=== PATIENT | female | born 2000 | race Caucasian/White ===

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

== ENCOUNTER 2021-04-19 20:37 | Emergency (ER) | payer MEDICAID, SELFPAY ==
[2021-04-19 20:39] VITALS: BP 124/72; PULSE 96; RESP 15; TEMP 36.1; O2SAT 97; BMI 39.8
== END 2021-04-19 22:02 | disposition left against medical advice (07) ==
LOC: ED 22:02
PROVIDERS: PCP Pediatrics
DX: R69 Illness, unspecified (principal); Z53.21 Procedure and treatment not carried out due to patient leaving prior to being seen by health care provider

== ENCOUNTER 2022-11-06 22:18 | Emergency (ER) | payer MEDICAID, SELFPAY ==
[2022-11-06 22:19] VITALS: BP 119/105; PULSE 104; RESP 18; TEMP 36.1; O2SAT 96; BMI 41.4
[2022-11-07] MEDS: 0.9% Normal Saline 1,000 ML 999 ML IV (00:46)
[2022-11-07] MEDS: DiphenhydrAMINE 50 MG/ML Syringe IV (00:46)
[2022-11-07] MEDS: Ketorolac 30 MG/ML Syringe IV (00:46)
[2022-11-07] MEDS: Metoclopramide 10 MG/2 ML Vial IV (00:46)
--- NOTE | 2022-11-07 02:16 | EX.ED.DYSGE1 ---
HPI History of Present Illness Chief Complaint: Headache Informant: patient and family Narrative Narrative: Patient is a 22-year-old female with past medical history of migraine headaches. Patient and family states that they recently traveled from [place] and after returning to [place] patient began complaining of generalized headache with light sensitivity. They states she developed bouts of nausea and vomiting and then began to slur her speech. Patient and family states that the slurred speech was not normal for her with her previous migraines and this concerned him and therefore she was brought in for evaluation [facility] Home Medications ondansetron 4 mg disintegrating tablet 4 mg PO TID PRN nausea and vomiting #21 tabs 11/07/22 [Rx Last Taken Unknown] Allergy/AdvReac Type Severity Reaction Status Date / Time amoxicillin [Amoxicillin] Allergy Rash Verified 11/06/22 22:19 cefdinir [From Omnicef] Allergy Rash Verified 11/06/22 22:19 Penicillins Allergy Hives Verified 11/06/22 22:19 Social History Smoking Status: Never smoker ROS ROS ED Constitutional Constitutional ED: Denies chills or fever(s) Eyes Eyes: Reports other Details: Positive photophobia ENT ENT ED: Denies sore throat Cardiovascular Cardiovascular: Denies chest pain Respiratory/Chest Respiratory/Chest: Denies cough or dyspnea Gastrointestinal Gastrointestinal: Reports nausea and vomiting; Denies abdominal pain or diarrhea Genitourinary Genitourinary ED: Denies dysuria Musculoskeletal Musculoskeletal: Denies myalgias or neck pain Integumentary Denies rash Neurologic Neurologic: Reports headache(s) Hematologic/Lymphatic Hematologic/Lymphatic: Denies easy bleeding or easy bruising EXAM Physical Exam Const Vital Signs: 11/06/22 22:19 11/07/22 02:35 Temperature 97 F L Temperature Source Temporal Pulse Rate 104 H 74 Respiratory Rate 18 16 Blood Pressure 119/105 H 167/87 H Blood Pressure Mean 109 Pulse Ox 96 96 Oxygen Delivery Method Room Air Positive well nourished, well developed and obese General Appearance ED: well developed Nutritional Appearance: obese HEENT Reports moist mucous membranes HEENT Narrative: No tongue or cheek biting to suggest seizure activity No signs of infection in the posterior pharynx No airway edema or compromise Eyes PERRL and EOMs intact bilaterally General Eye ED: Negative for scleral icterus Neck supple Neck Narrative: No nuchal rigidity or meningeal signs present Resp normal respiratory effort and clear to auscultation bilaterally Cardio regular rate and regular rhythm GI non-tender and non-distended GI Narrative: No voluntary guarding or rigidity. No pulsatile mass or fluid wave Auscultation: hyperactive bowel sounds Palpation: soft Extremity normal to inspection Extremity Narrative: No asymmetric edema no pitting edema negative Homans' sign bilaterally Neuro oriented x3 and CN's II-XII intact bilaterally Neuro Narrative: Cranial nerves II through XII are grossly intact there are no focal neurologic deficits. No pronator drift no dysmetria no truncal ataxia. NIH stroke scale score of 0 Sensorium / Orientation: alert Psych Psych Narrative: Patient has a flat affect Skin no rashes or lesions noted General Skin Exam: Negative for jaundice MDM MDM MDM Narrative Medical decision making narrative: Patient presented to the ER awake and alert with no focal neurologic deficit. With her past history of migraine headache differential diagnosis is atypical migraine headache versus acute ischemic or hemorrhagic stroke versus TIA versus gastroenteritis. Secondary to this blood work was ordered and a noncontrast head CT obtained in order to rule out bleed or mass as a cause of her nausea vomiting and headache. Unfortunately labs were not able to be obtained but head CT revealed no acute findings. Patient was treated with IV fluids Toradol Benadryl and Reglan and on reevaluation had improvement of headache and her neuro exam remained normal. She was able to walk to and from the bathroom with a steady gait and did not have any further slurred speech. Therefore this time with resolution of of her neurologic symptoms as well as improvement of headache and head CT showing no acute bleed or mass as a cause of her symptoms I do feel that this was atypical migraine especially as she is low risk for any type of neurologic event and would be extremely rare for a TIA or stroke to cause pain with symptoms. Therefore patient will be given continue antiemetic medications but is otherwise safe for discharge History & Record Review Discussion w/independent historian: Patient and Family Radiography Diagnostic Testing: Clinical Impression(s) from Imaging Studies Brain CT 11/07/22 23:47 IMPRESSION: Normal unenhanced CT scan of the brain. Electronically Signed: Franko Nance MD at 1:42 EDT , Discharge Plan Triage Chief Complaint: Headache Other Complaint: Confusion Nausea/Vomiting ED Provider: Parshant Ndiaye Dx/Rx/DC Orders Clinical Impression: Atypical migraine, ADD (attention deficit disorder) Instructions: Migraines and Cluster Headaches Prescriptions: New ondansetron 4 mg tablet,disintegrating 4 mg PO TID PRN (Reason: nausea and vomiting) Qty: 21 0RF Primary Care Provider: Keisha Zambrano Referrals: Keisha Zambrano MD [Primary Care Provider] - Disposition Disposition: Home, Self Care Discharge Date/Time: 11/07/22 02:36
[2022-11-07] MEDS: Ondansetron ODT 4 MG Tablet PO (02:32)
[2022-11-07 02:35] VITALS: BP 167/87; PULSE 74; RESP 16; O2SAT 96
--- NOTE | 2022-11-07 23:47 | CT_ITS ---
STUDY: CT BRAIN WITHOUT CONTRAST REASON FOR EXAM: Female, 22 years old. headache RADIATION DOSAGE (If Supplied By Facility): CTDIvol = ( 44.99 ) mGy, DLP = ( 779.24 ) mGycm TECHNIQUE: Transaxial CT imaging of the brain was performed without administration of intravenous contrast material. Individualized dose optimization techniques were used for this CT. COMPARISON: No relevant priors. FINDINGS: Normal soft tissue structures. Normal calvarium. Normal size ventricles and extra-axial spaces for the patient''s age. Normal white matter tracts of the cerebral hemispheres. Normal basal ganglia and thalami. Normal brainstem. Normal cerebellum. There is no intracranial hemorrhage. There are no findings of an acute ischemic infarction. Normal visualized paranasal sinuses. CT/Brain/Head without Contrast IMPRESSION: Normal unenhanced CT scan of the brain. Electronically Signed: Franko Nance MD at 1:42 EDT ,
== END 2022-11-07 02:36 | disposition home or self-care (01) ==
PROVIDERS: Emergency Provider Emergency Medicine; PCP Pediatrics; Visit Provider Emergency Medicine
DX: G43.909 Migraine, unspecified, not intractable, without status migrainosus (principal); F90.0 Attention-deficit hyperactivity disorder, predominantly inattentive type
CPT/HCPCS: 70450; 96374; 96375; 99284; J7030; A4216

== ENCOUNTER 2024-03-06 00:22 | Emergency (ER) | payer SELFPAY ==
[2024-03-06 00:23] VITALS: PULSE 92; RESP 19; TEMP 36.8; O2SAT 97
[2024-03-06 00:28] VITALS: BP 126/79
--- NOTE | 2024-03-06 00:48 | CT_ITS ---
INDICATION: headache EXAMINATION: CT BRAIN - CT Head or Brain W/O Contrast Injection TECHNIQUE: Multiple axial images were obtained of the head with sagittal and coronal reconstructed images. Individualized dose optimization techniques were used for this CT. IV contrast dosage and agent: None. COMPARISON: 11/07/2022 CT. FINDINGS: BRAIN PARENCHYMA: No evidence of an acute infarct or intracranial hemorrhage. No evidence of a mass. CSF SPACES: The ventricles, sulci and subarachnoid cisterns are appropriate for age. CALVARIUM, SKULL BASE, PARANASAL SINUSES AND MASTOID AIR CELLS: No fracture. Mastoid air cells are clear. Visualized paranasal sinuses are unremarkable. ORBITS: The globes, extraocular muscles, optic nerves and retrobulbar fat are unremarkable. CT/Brain/Head without Contrast IMPRESSION: Normal noncontrast CT of the head. Electronically Signed: Finn Shepherd DO at 2:08 EST ,
--- NOTE | 2024-03-06 00:56 | EDS_ITS ---
HPI History of Present Illness Chief Complaint: Numb/Ting Narrative Narrative: Patient is a 23-year-old female past medical history migraine headaches who presents to the emergency department the chief complaint of headache, nausea and tingling in her right arm. States that around 11:00 this evening she developed a headache that is gradually worsened. States that this does feel like a migraine headache however she noted that she had right arm tingling which prompted her to come here for further evaluation management. Patient states that she took ibuprofen for her headache prior to arrival. Patient denies any recent sick contacts. Patient denies any blood thinner medications. Patient denies any head injury. PFSH PFSH Home Medications ?Medication ?Instructions ?Recorded ?Last Taken ?Type ondansetron 4 mg disintegrating 4 mg PO Q6H PRN nausea and 03/06/24 Unknown Rx tablet vomiting #20 tabs Allergy/AdvReac Type Severity Reaction Status Date / Time amoxicillin (Amoxicillin) Allergy Rash Verified 11/06/22 22:19 azithromycin (From Zithromax) Allergy Hives Verified 03/06/24 00:29 cefdinir (From Omnicef) Allergy Rash Verified 11/06/22 22:19 Penicillins Allergy Hives Verified 11/06/22 22:19 Social History Smoking Status: Never smoker ROS ROS ED ROS Narrative Constitutional: Complains of headache as noted above denies any lightheadedness, fevers, chills Eyes: Denies change in vision double vision blurry vision Cardiovascular: Denies chest pain or palpitations Respiratory: Denies coughing wheezing shortness of breath Abdomen: Denies abdominal pain diarrhea, complains of nausea as noted above : Denies any urinary symptoms Neurological: Complains of tingling in her right arm but denies any other associated symptoms anywhere else in her body denies weakness Musculoskeletal: Denies back pain Skin: Denies rashes or lesions EXAM Physical Exam Narrative Exam Narrative: General: Patient lying in bed rest comfortably did not appear to be acute distress Head: Atraumatic, normocephalic Eyes: PERRL bilateral, EOMI bilateral, no conjunctival injection noted Neck: Soft, supple, trachea midline Cardiovascular: Regular rate and rhythm no murmurs gallops rubs noted Respiratory: Clear to auscultation bilaterally no rales rhonchi or wheezes noted Abdomen: Soft, nondistended, nontender to palpation bowel sounds present MS 4 Extremities: +5/5 strength noted in the bilateral upper and lower extremities, radial pulses +2/4 in the bilateral per extremities Neurological: Patient following commands knew that she was at [facility] years 2023. NIH of 0 GCS 15. Patient completed finger-nose test bilaterally without any difficulty Skin: Warm, dry, intact Const Vital Signs: 03/06/24 00:23 03/06/24 00:28 03/06/24 02:22 Temperature 98.2 F Temperature Source Oral Pulse Rate 92 73 Respiratory Rate 19 H 12 Blood Pressure 126/79 H 119/72 Blood Pressure Mean 94 87 Pulse Ox 97 93 Oxygen Delivery Method Room Air Room Air MDM MDM MDM Narrative Medical decision making narrative: Patient is a 23-year-old female who presents to the emergency department chief complaint of headache. Patient will have a workup performed here on the diffe rential diagnose includes Melamin to intracranial hemorrhage, migraine headache, tension headache. Once workup is obtained reviewed she will be reevaluated. Patient's headache once again started at 2300 and gradually worsened prompting her to come here also secondary to her right arm tingling. Patient be given Reglan, Tylenol, and IV fluids. Patient's urinalysis reviewed and showed no evidence of infection she had negative nitrates negative leukocyte esterase no white blood cells seen but 4+ bacteria she does not have any urinary symptoms we will send for culture though she was advised to follow-up on this with her primary care physician. Her glucose was slightly elevated at 126. Patient CT head and brain was reviewed and showed no acute findings. On reevaluation the patient she states that she is feeling better still has slight headache therefore we will add on Toradol and another dose of Reglan. On reevaluation the patient she is feeling much improved would like to go home at this point time. She is advised to follow-up with her primary care physician outpatient setting. She is encouraged to rotate Tylenol and ibuprofen [id number]. She is given a prescription for Zofran. She is advised return with worsening symptoms or concerns she is agreeable this plan all question concerns answered she was discharged home in stable condition. Lab Data Labs: Laboratory Results - last 24 hr 03/06/24 03/06/24 00:51 02:04 Urine Color Yellow Urine Clarity Sl. Cloudy Urine pH 6.0 Ur Specific [place] 1.020 Urine Protein 30 H Urine Glucose (UA) Normal Urine Ketones 5 H Urine Occult Blood Negative Urine Nitrite Negative Urine Bilirubin Negative Urine Urobilinogen 1 H Ur Leukocyte Esterase Negative Urine RBC 0 SEEN Urine WBC 0 SEEN Ur Squamous Epith Cells 5-10 SEEN Urine Bacteria 4+ Urine Mucus 0 SEEN Urine Test Negative POC Glucose 126 H Radiography Diagnostic Testing: Clinical Impression(s) from Imaging Studies Brain CT 03/06/24 00:48 IMPRESSION: Normal noncontrast CT of the head. Electronically Signed: Finn Shepherd DO at 2:08 EST , Discharge Plan Triage Chief Complaint: Numb/Ting ED Provider: Nader Dawson Dx/Rx/DC Orders Clinical Impression: Headache Prescriptions: New ondansetron 4 mg tablet,disintegrating 4 mg PO Q6H PRN (Reason: nausea and vomiting) Qty: 20 0RF Primary Care Provider: Care Physician,No Primary Referrals: Care Physician,No Primary [Primary Care Provider] - Tiny Pat DO Shay [[facility]] - Activity Restrictions/Additional Instructions: Follow-up your primary care physician outpatient setting. Follow-up on urine culture with them. Rotate Tylenol and ibuprofen [id number]. He Zofran for nausea as prescribed. Return with worsening symptoms or other concerns Print Language: Greenlandic Disposition Disposition: Home, Self Care
[2024-03-06] MEDS: Metoclopramide 10 MG/2 ML Vial 5 MG IV ×2 (01:07→02:54)
[2024-03-06] MEDS: 0.9% Normal Saline (500mL Bag) 500 ML 999 ML IV (01:07)
[2024-03-06 01:08] LABS: Bedside Glucose 126 mg/dL (74-106)
[2024-03-06] MEDS: Acetaminophen 500 MG Tablet 1000 MG PO (01:34)
[2024-03-06 02:14] LABS: Mucous, Urine 0 SEEN /hpf (<or=2+); Red Blood Cells-Urine 0 SEEN /hpf (0-5); White Blood Cells 0 SEEN /hpf (0-5)
[2024-03-06 02:22] VITALS: BP 119/72; PULSE 73; RESP 12; O2SAT 93
[2024-03-06 02:39] LABS: Color, Urine Yellow (Yellow); Glucose, Dipstick Normal (Normal); Ketone-Dipstick 5 mg/dl (Negative); Leukocyte Esterase-Dipstick Negative /ul (Negative); Nitrite-Dipstick Negative (Negative); Occult Blood-Urine Negative /ul (Negative); Protein-Dipstick 30 mg/dl (Negative); Urine Bilirubin Dipstick Negative (Negative); Urine Clarity Sl. Cloudy (Clear); Urine Urobilinogen 1 mg/dl (Normal)
[2024-03-06 02:43] LABS: Internal QC Validated? YES +Cl - CLEAR BKGD; Pregnancy, Urine Negative Negative; Record Kit Lot#,Urine Preg 869294
[2024-03-06] MEDS: Ketorolac 15 MG/ML Vial IV (02:53)
[2024-03-06 02:54] LABS: Bacteria 4+ /hpf (None Seen); Squamous Epithelial Cells - UA 5-10 SEEN /hpf (5-10)
[2024-03-06 03:37] VITALS: BP 97/56; PULSE 84; RESP 18; TEMP 36.9; O2SAT 100
== END 2024-03-06 03:38 | disposition home or self-care (01) ==
PROVIDERS: Emergency Provider Emergency Medicine; Visit Provider Emergency Medicine
DX: R51.9 Headache, unspecified (principal)
CPT/HCPCS: 70450; 81001; 81025; 82962; 87086; 87088; 96361; 96374; 96375; 96376; 99282; A4216

== ENCOUNTER 2024-06-14 07:08 | Emergency (ER) | payer SELFPAY ==
[2024-06-14 07:09] VITALS: BP 154/112; PULSE 129; RESP 22; TEMP 36.9; O2SAT 97; BMI 41.2
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
[2024-06-14] MEDS: Diphth,Pertuss(Acell),Tet Vac 0.5 ML Vial IM (07:26)
[2024-06-14] MEDS: Ondansetron 4 MG/2 ML Vial IV (07:26)
[2024-06-14] MEDS: Morphine 4 MG/ML Syringe IV (07:26)
[2024-06-14] MEDS: 0.9% Normal Saline (1000mL) 1,000 ML 999 ML IV (07:29)
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
[2024-06-14 08:21] LABS: Absolute Neutrophil Count 10.7 X10^3/uL (2.0-7.7); Basophil# 0.04 X10^3/uL; Basophil% 0.3 % (0-1); Eosinophil# 0.15 X10^3/uL; Hematocrit 39.6 % (37-47); Hemoglobin 12.9 g/dL (12.0-15.0); Lymphocyte % 20.4 % (19-41); Mean Corp Hgb Conc 32.6 g/dL (32-36); Mean Corpuscular Hgb 29.1 pg (27.0-32.0); Mean Corpuscular Volume 89.4 fL (81-99); Mean Platelet Vol. 9.9 fl (6.2-12.0); Monocyte# 1.04 X10^3/uL; Monocyte% 6.9 % (0-10); NRBC Flagged by Analyzer 0 % (0-5); Neutrophil # 10.69 X10^3/uL (2.7-7.7); Neutrophil % 70.4 % (47-70); Platelet Count 248 K/mm3 (150-450); RBC Distribution Width CV 13.2 % (11.6-14.6); RBC Distribution Width SD 43.3 fl (35.1-43.9); Red Blood Count 4.43 M/mm3 (4.2-5.4); White Blood Count 15.2 K/mm3 (4.4-11.0)
[2024-06-14 08:48] LABS: Internal QC Validated? YES +Cl - CLEAR BKGD; Pregnancy, Serum, hCG Quali. NEGATIVE Negative
[2024-06-14 09:08] VITALS: BP 140/89; PULSE 96; RESP 16; O2SAT 99
[2024-06-14] MEDS: Ketorolac 30 MG/ML Syringe IV (10:44)
[2024-06-14] MEDS: Orphenadrine 60 MG/2 ML Ampul 30 MG IM (10:47)
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
[2024-06-14 12:13] VITALS: PULSE 92; RESP 16; O2SAT 99
[2024-06-14 12:17] LABS: AST(SGOT) 25 U/L (<=31); Alanine Aminotransfer ALT/SGPT 15 U/L (<=34); Albumin, Serum 4.1 g/dL (3.5-5.0); Alkaline Phosphatase 87 U/L (35-104); Anion Gap 12 (5-15); BUN 11 mg/dL (4-19); BUN/Creat Ratio 14.9 RATIO (10-20); Bilirubin, Direct 0.17 mg/dL (0.00-0.30); Calcium,Total 8.9 mg/dL (7.6-11.0); Chloride 104 mmol/L (98-108); Creatinine, Serum 0.77 mg/dL (0.70-1.20); EST Glomerular Filtration Rate 112 (>60); Estimated Creatinine Clearance 137.08 ml/min (50-250); Glucose 108 mg/dL (70-99); Potassium 4.6 mmol/L (3.3-5.1); Protein, Total 7.1 g/dL (5.9-8.4); Sodium Level 138 mmol/L (133-145)
--- NOTE | 2024-06-14 12:57 | ED.RN ---
called mom to update after results. with pt verbal consent
[2024-06-14 13:06] VITALS: BP 138/79; PULSE 90; RESP 16; O2SAT 99
== END 2024-06-14 13:07 | disposition home or self-care (01) ==
PROVIDERS: Emergency Provider Emergency Medicine; Visit Provider Emergency Medicine
DX: R10.9 Unspecified abdominal pain (principal); V89.2XXA Person injured in unspecified motor-vehicle accident, traffic, initial encounter
CPT/HCPCS: 36415; 70450; 71260; 72125; 73564; 73590; 74177; 80048; 80076; 84703; 85025; 90715; 93005; 96361; 96372; 96374; 96375; 96376; 99285; Q9967; A4216; J2405